=== PATIENT | male | born 1965 | race Caucasian/White ===

== ENCOUNTER → 2022-01-10 | Outpatient (CLI) | payer OTHER | LOC: EXRD 15:24 | DX: R79.89 Other specified abnormal findings of blood chemistry (principal) | CPT/HCPCS: 76775 ==

== ENCOUNTER → 2022-01-18 | Outpatient (CLI) | payer OTHER | LOC: KOH-I 10:30 | DX: M51.36 Other intervertebral disc degeneration, lumbar region (principal); M51.37 Other intervertebral disc degeneration, lumbosacral region | CPT/HCPCS: 72148 ==

== ENCOUNTER → 2022-01-22 | Outpatient (CLI) | payer OTHER | LOC: KOH-I 08:33 | DX: M54.12 Radiculopathy, cervical region (principal) | CPT/HCPCS: 72040 ==